=== PATIENT | female | born 1965 | race Caucasian/White ===

== ENCOUNTER 2017-09-19 16:14 | Inpatient (IN) | payer BC ==
[~2017-09-19] VITALS: Ht 160 cm; Wt 78.4 kg
[2017-09-19 16:16] VITALS: BP 146/88; PULSE 67; RESP 14; TEMP 97.6; O2SAT 97
[2017-09-19 17:02] LABS: AUTOMATED NEUTROPHIL # 4.4 TH/MM3 (1.8-7.7); BASOPHIL # 0.2 TH/MM3 (0-0.2); BASOPHIL % 1.9 % (0.0-2.0); EOSINOPHIL # 0.4 TH/MM3 (0-0.4); EOSINOPHIL % 5.2 % (0.0-4.0); HEMOGLOBIN 13.5 GM/DL (11.6-15.3); LYMPH % 29.2 % (9.0-44.0); LYMPHOCYTE # 2.3 TH/MM3 (1.0-4.8); MEAN CORPUSCULAR HEMOGLOBIN 30.2 PG (27.0-34.0); MEAN CORPUSCULAR HGB CONC 34.7 % (32.0-36.0); MEAN PLATELET VOLUME 7.3 FL (7.0-11.0); MONO % 8.1 % (0.0-8.0); MONOCYTE # 0.6 TH/MM3 (0-0.9); NEUT % 55.6 % (16.0-70.0); PLATELET COUNT 319 TH/MM3 (150-450); RED BLOOD COUNT 4.49 MIL/MM3 (4.00-5.30); RED CELL DISTRIBUTION WIDTH 13.8 % (11.6-17.2)
[2017-09-19 17:19] LABS: AST (GOT) 19 U/L (15-37); BICARBONATE 29.5 MEQ/L (21.0-32.0); BLOOD UREA NITROGEN 12 MG/DL (7-18); CALCIUM 8.8 MG/DL (8.5-10.1); CHLORIDE 93 MEQ/L (98-107); CREATININE 1.01 MG/DL (0.50-1.00); GLOMERULAR FILTRATION RATE 58 ML/MIN (>89); GLUCOSE,RANDOM 84 MG/DL (74-106); SODIUM (NA) 131 MEQ/L (136-145)
[2017-09-19 17:30] LABS: ALKALINE PHOSPHATASE 70 U/L (45-117); ALT (GPT) 20 U/L (10-53); TOTAL BILIRUBIN ADULT 0.4 MG/DL (0.2-1.0); TOTAL PROTEIN 7.7 GM/DL (6.4-8.2)
[2017-09-19] MEDS ORDERED: ZIPR1CAP10 PO (18:04)
[2017-09-19] MEDS ORDERED: VORT1TAB3 PO (18:04)
[2017-09-19] MEDS ORDERED: BUPR300T PO (18:04)
[2017-09-19] MEDS ORDERED: FURO1TAB60 PO (18:04)
[2017-09-19] MEDS ORDERED: LISI-515 PO (18:04)
[2017-09-19] MEDS ORDERED: DONE5TAB7 PO (18:04)
[2017-09-19] MEDS ORDERED: CLON2TAB PO (18:04)
[2017-09-19] MEDS ORDERED: ESTR1TAB PO (18:04)
[2017-09-19] MEDS ORDERED: PROP80TA PO (18:04)
[2017-09-19] MEDS ORDERED: BUPR150T3 PO (18:04)
[2017-09-19] MEDS ORDERED: NALT50TA3 PO (18:04)
[2017-09-19] MEDS ORDERED: ZALE10CA PO (18:04)
[2017-09-19] MEDS ORDERED: GABA800T PO (18:04)
[2017-09-19] MEDS ORDERED: LEVO175T2 PO (18:04)
[2017-09-19] MEDS ORDERED: AMIT25TA9 PO (18:04)
[2017-09-19] MEDS ORDERED: LAMO25TA PO (18:04)
[2017-09-19] MEDS ORDERED: CLON0.1T PO (18:04)
--- NOTE | 2017-09-19 18:53 | PD ---
HPI Chief Complaint: Psychiatric Symptoms Time Seen by Provider: 18:38 Travel History International Travel<30 days: No Contact w/Intl Traveler<30days: No Traveled to known affect area: No History of Present Illness HPI 52yo F with PMH of depression, anxiety, HTN presents to the ED because she was feeling depressed and her therapist said she should come to the ED. Pt has a tendency to cut her left arm and there are many superficial healed lacerations. Denies any fever, sob, n/v, abdominal pain, focal weakness or numbness. Pt said about an hour ago, she started having left sided chest pain that is sharp. Said she gets chest pain when she is anxious. Last stress test a year ago was normal. PFSH Past Medical History Bipolar Disorder: Yes Anxiety: Yes Depression: Yes High Cholesterol: Yes Diminished Hearing: No Hypertension: Yes Neurologic: Yes (NERVE PAIN ) Psychiatric: Yes (CUTTING ) Reproductive: Yes (FIBROIDS ) Triglycerides - High: Yes (HYPO ) Tetanus Vaccination: Unknown Influenza Vaccination: Yes ?: Not Menopausal: Yes Tubal Ligation: Yes Past Surgical History Abdominal Surgery: Yes (POLYPS REMOVED ) Cholecystectomy: Yes Gynecologic Surgery: Yes (HYSTERECTOMY ) Hysterectomy: Yes Other Surgery: Yes (PILONIDAL CYST REMOVED TO LOWER BACK ) Social History Alcohol Use: Yes (NO ALCOHOL FOR THE LAST 8 WEEKS , HX ETOH ABUSE ) Tobacco Use: Yes (08/28 PPD ) Substance Use: No (HX : COCCAINE LAST USE 1996 ) Allergies-Medications (Allergen,Severity, Reaction): Uncoded Allergies: sulfa drugs (Adverse Reaction, Unknown, manic behavior, 09/19/17) Reported Meds & Prescriptions Reported Meds & Active Scripts Active Reported Donepezil 5 Mg Tab 5 Mg PO HS Ziprasidone 60 Mg Cap 120 Mg PO HS Amitriptyline (Amitriptyline HCl) 25 Mg Tab 25 Mg PO HS Zaleplon 10 Mg Cap 10 Mg PO HS PRN Clonidine (Clonidine HCl) 0.1 Mg Tab 0.1 Mg PO HS Lamotrigine 25 Mg Tab 50 Mg PO HS Trintellix (Vortioxetine) 20 Mg Tab 20 Mg PO DAILY Bupropion HCl ER 24 HR (Bupropion HCl) 150 Mg Tab 150 Mg PO DAILY Lisinopril 20 Mg Tab 20 Mg PO DAILY Gabapentin 800 Mg Tab 800 Mg PO TID Lasix (Furosemide) 40 Mg Tab 40 Mg PO DAILY Estradiol 1 Mg Tab 1 Mg PO DAILY Naltrexone (Naltrexone HCl) 50 Mg Tab 50 Mg PO DAILY Clonazepam 2 Mg Tab 2 Mg PO BID Bupropion HCl ER 24 HR (Bupropion HCl) 300 Mg Tab 300 Mg PO DAILY Levothyroxine (Levothyroxine Sodium) 175 Mcg Tab 175 Mcg PO DAILY Propranolol (Propranolol HCl) 80 Mg Tab 80 Mg PO Q12HR Review of Systems Except as stated in HPI: all other systems reviewed are Neg Physical Exam Narrative GENERAL: 52yo F not in distress. SKIN: Focused skin assessment warm/dry. HEAD: Atraumatic. Normocephalic. EYES: Pupils equal and round at 3mm bilaterally. EOMI. CARDIOVASCULAR: Regular rate and rhythm. No murmur appreciated. RESPIRATORY: No accessory muscle use. Clear to auscultation. Breath sounds equal bilaterally. GASTROINTESTINAL: Abdomen soft, non-tender, nondistended. MUSCULOSKELETAL: LLE: Multiple healed superficial lacerations in volar aspect of left forearm. Distal pulses intact. NEUROLOGICAL: Awake and alert. No obvious cranial nerve deficits. Motor grossly within normal limits. Normal speech. PSYCHIATRIC: Anxious appearing. Data Data Last Documented VS Vital Signs Date Time Temp Pulse Resp B/P (MAP) Pulse Ox O2 Delivery O2 Flow Rate FiO2 09/20/17 07:05 80 15 107/60 (76) 97 Room Air 09/19/17 16:16 97.6 Orders Orders Complete Blood Count With Diff (09/19/17 16:23) Comprehensive Metabolic Panel (09/19/17 16:23) Thyroid Stimulating Hormone (09/19/17 16:23) Psych Screen (09/19/17 16:23) Drug Screen, Random Urine (09/19/17 16:23) Alcohol (Ethanol) (09/19/17 16:23) Electrocardiogram (09/19/17 ) Troponin I (09/19/17 18:46) Chest, Single Ap (09/19/17 ) Lorazepam (Ativan) (09/19/17 19:00) Ibuprofen (Motrin) (09/19/17 21:00) Troponin I (09/19/17 22:02) Electrocardiogram (09/19/17 ) Zolpidem (Ambien) (09/20/17 02:30) Diet Regular Basic (09/20/17 Breakfast) Lorazepam (Ativan) (09/20/17 13:30) Lorazepam Inj (Ativan Inj) (09/20/17 13:30) Lorazepam (Ativan) (09/20/17 13:30) Lorazepam Inj (Ativan Inj) (09/20/17 13:30) Acetaminophen (Tylenol) (09/20/17 13:30) Magnesium Hydroxide Liq (Milk Of Magnesi (09/20/17 13:30) Al-Mag Hy-Si 40-40-4 Mg/Ml Liq (Mag-Al P (09/20/17 13:30) Nicotine 21 Mg Patch.24 Hr (Habitrol 21 (09/20/17 15:00) Labs Laboratory Tests Test 09/19/17 16:34 09/19/17 22:30 White Blood Count 8.0 TH/MM3 Red Blood Count 4.49 MIL/MM3 Hemoglobin 13.5 GM/DL Hematocrit 39.0 % Mean Corpuscular Volume 87.0 FL Mean Corpuscular Hemoglobin 30.2 PG Mean Corpuscular Hemoglobin Concent 34.7 % Red Cell Distribution Width 13.8 % Platelet Count 319 TH/MM3 Mean Platelet Volume 7.3 FL Neutrophils (%) (Auto) 55.6 % Lymphocytes (%) (Auto) 29.2 % Monocytes (%) (Auto) 8.1 % Eosinophils (%) (Auto) 5.2 % Basophils (%) (Auto) 1.9 % Neutrophils # (Auto) 4.4 TH/MM3 Lymphocytes # (Auto) 2.3 TH/MM3 Monocytes # (Auto) 0.6 TH/MM3 Eosinophils # (Auto) 0.4 TH/MM3 Basophils # (Auto) 0.2 TH/MM3 CBC Comment DIFF FINAL Differential Comment Blood Urea Nitrogen 12 MG/DL Creatinine 1.01 MG/DL Random Glucose 84 MG/DL Total Protein 7.7 GM/DL Albumin 4.0 GM/DL Calcium Level 8.8 MG/DL Alkaline Phosphatase 70 U/L Aspartate Amino Transf (AST/SGOT) 19 U/L Alanine Aminotransferase (ALT/SGPT) 20 U/L Total Bilirubin 0.4 MG/DL Sodium Level 131 MEQ/L Potassium Level 3.8 MEQ/L Chloride Level 93 MEQ/L Carbon Dioxide Level 29.5 MEQ/L Anion Gap 9 MEQ/L Estimat Glomerular Filtration Rate 58 ML/MIN Troponin I LESS THAN 0.02 NG/ML LESS THAN 0.02 NG/ML Thyroid Stimulating Hormone 3rd Gen 2.460 uIU/ML Urine Opiates Screen NEG Urine Barbiturates Screen NEG Urine Amphetamines Screen NEG Urine Benzodiazepines Screen NEG Urine Cocaine Screen NEG Urine Cannabinoids Screen NEG Ethyl Alcohol Level LESS THAN 3 MG/DL MDM Medical Decision Making Medical Screen Exam Complete: Yes Emergency Medical Condition: Yes Interpretation(s) EKG: NSR 61bpm. Normal axis. No ST segment elevation or depression. EKG #2: NSR 68bpm. Normal axis. No ST segment elevation or depression. Differential Diagnosis Anxiety vs. depression vs. atypical chest pain Narrative Course 52yo F here voluntarily to see a psychiatrist. Has been having suicidal thoughts and saw therapist today who said she should come to the ED. Pt also said she started feeling chest pain prior to my evaluation and that she always has it when she is nervous. Very atypical chest pain. Labs reviewed, no leukocytosis. Mild hyponatremia at 131. TSH normal. Alcohol negative. Utox negative. CXR negative. Troponin negative x2 negative. EKG x2 normal. Pt is medically clear for psych evaluation. Diagnosis Primary Impression: Depression Qualified Codes: F32.9 - Major depressive disorder, single episode, unspecified Laura Cleaning DO Sep 19, 2017 18:53
[2017-09-19] MEDS ORDERED: LORazepam 1 MG TAB PO ONE (19:00)
--- NOTE | 2017-09-19 19:53 | RADRPT ---
EXAM DATE/TIME: 09/19/2017 19:05 [facility] COMPARISON: No previous studies available for comparison. INDICATIONS : Chest pain. MEDICAL HISTORY : None. SURGICAL HISTORY : None. ENCOUNTER: Initial ACUITY: 1 day PAIN SCORE: 09/05 LOCATION: Bilateral chest FINDINGS: A single view of the chest demonstrates the lungs to be symmetrically aerated without evidence of mas s, infiltrate or effusion. The cardiomediastinal contours are unremarkable. Osseous structures are intact. CONCLUSION: 1. No active disease. Junior Whitehead MD on September 19, 2017 at 19:50 Board Certified Radiologist. This report was verified electronically.
[2017-09-19] MEDS ORDERED: IBUPROFEN 600 MG TAB PO ONE (21:00)
--- NOTE | 2017-09-20 00:28 | EKG ---
Date Performed: 09/19/2017 Time Performed: 19:25:24 PTAGE: 52 years EKG: Sinus rhythm NORMAL ECG NO PREVIOUS TRACING DOCTOR: Nick Narvaez Interpretating Date/Time 09/20/2017 00:27:09
[2017-09-20] MEDS ORDERED: ZOLPIDEM TARTRATE 5 MG TAB PO ONE (02:30)
[2017-09-20 07:05] VITALS: BP 107/60; PULSE 80; RESP 15; O2SAT 97
[2017-09-20] MEDS ORDERED: ACETAMINOPHEN 325 MG TAB PO PRN (13:30)
[2017-09-20] MEDS ORDERED: LORazepam 2 MG/ML VIAL IM PRN ×2 (13:30)
[2017-09-20] MEDS ORDERED: LORazepam 0.5 MG TAB PO PRN (13:30)
[2017-09-20] MEDS ORDERED: LORazepam 1 MG TAB PO PRN (13:30)
[2017-09-20] MEDS ORDERED: MAGNESIUM HYDROXIDE SUSP 30 ML CUP PO PRN (13:30)
[2017-09-20] MEDS ORDERED: ALUMINUM/MAGNESIUM/SIMETH 30 ML CUP PO PRN (13:30)
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
[2017-09-20] MEDS ORDERED: NICOTINE 21 MG/24 HR PATCH T-DERMAL SCH (15:00)
--- NOTE | 2017-09-20 16:42 | PD.CONS ---
HPI Service 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 Patient has a history of cutting herself and today was in to see her counselor who advised she come to [place] for evaluation. At the moment of my encounter patient is calm and cooperative and is able to answer questions appropriately. She denies any fevers, chills, nausea, vomiting, diarrhea, chest pains, or shortness of breath. She reports a headache and states that her medications have not been restarted the complaining of anxiety. Patient tells me that she suffers from burning mouth syndrome and that she used to be on a numbing liquid however was transitioned over to a nerve pill, she is unable to provide me with the dosage. She also states that she quit drinking 8 weeks ago and was previously on a medication to help her with alcohol cravings. She is a one pack per day smoker and states that since she has arrived she been struggling with this since she is not allowed to smoke here. Review of Systems Except as stated in HPI: all other systems reviewed are Neg Past Family Social History Allergies: Uncoded Allergies: sulfa drugs (Adverse Reaction, Unknown, manic behavior, 09/19/17) Past Medical History HTN Hypothyroidism ?VT COPD/emphysema Burning mouth syndrome glaucoma Past Surgical History Hysterectomy due to fibroids Cholecystectomy Reported Medications Reported Meds & Active Scripts Active Reported Donepezil 5 Mg Tab 5 Mg PO HS Ziprasidone 60 Mg Cap 120 Mg PO HS Amitriptyline (Amitriptyline HCl) 25 Mg Tab 25 Mg PO HS Zaleplon 10 Mg Cap 10 Mg PO HS PRN Clonidine (Clonidine HCl) 0.1 Mg Tab 0.1 Mg PO HS Lamotrigine 25 Mg Tab 50 Mg PO HS Trintellix (Vortioxetine) 20 Mg Tab 20 Mg PO DAILY Bupropion HCl ER 24 HR (Bupropion HCl) 150 Mg Tab 150 Mg PO DAILY Lisinopril 20 Mg Tab 20 Mg PO DAILY Gabapentin 800 Mg Tab 800 Mg PO TID Lasix (Furosemide) 40 Mg Tab 40 Mg PO DAILY Estradiol 1 Mg Tab 1 Mg PO DAILY Naltrexone (Naltrexone HCl) 50 Mg Tab 50 Mg PO DAILY Clonazepam 2 Mg Tab 2 Mg PO BID Bupropion HCl ER 24 HR (Bupropion HCl) 300 Mg Tab 300 Mg PO DAILY Levothyroxine (Levothyroxine Sodium) 175 Mcg Tab 175 Mcg PO DAILY Propranolol (Propranolol HCl) 80 Mg Tab 80 Mg PO Q12HR Active Ordered Medications Current Medications Medications (Trade) Dose Ordered Sig/Lamont Route Start Time Stop Time Status Last Admin (Wellbutrin Sr) 150 mg DAILY PO 09/21/17 09:00 (Wellbutrin Sr) 300 mg DAILY PO 09/21/17 09:00 (KlonoPIN) 2 mg BID PO 09/20/17 21:00 (Catapres) 0.1 mg HS PO 09/20/17 21:00 (Estradiol) 1 mg DAILY PO 09/21/17 09:00 (Lasix) 40 mg DAILY PO 09/21/17 09:00 (Prinivil) 20 mg DAILY PO 09/21/17 09:00 (Inderal) 80 mg Q12HR PO 09/20/17 21:00 (Geodon) 120 mg HS PO 09/20/17 21:00 (Neurontin) 2,400 mg HS PO 09/20/17 21:00 (Elavil) 50 mg HS PO 09/20/17 21:00 (LaMICtal) 50 mg Q12HR PO 09/20/17 21:00 (Synthroid) 100 mcg DAILY@0600 PO 09/21/17 06:00 (Synthroid) 75 mcg DAILY@0600 PO 09/21/17 06:00 Family History Mother: VT Father: Prostate cancer Social History Tobacco use: One pack per day Alcohol use: Quit drinking 8 weeks ago, reports drinking vodka daily, unable to quantify amount. She also states that because she worked 7 days in a row and was off 7 days she would only drink on her days off. Illicit drug use: Denies Physical Exam Vital Signs Vital Signs Date Time Temp Pulse Resp B/P (MAP) Pulse Ox O2 Delivery O2 Flow Rate FiO2 09/20/17 14:06 09/20/17 07:05 80 15 107/60 (76) 97 Room Air Physical Exam GENERAL: This is a well-nourished, well-developed patient, in no apparent distress. SKIN: Left forearm multiple laceration eschars, no surrounding warmth, redness or drainage open to air. Abdominal scars noted, left sided brown discoloration about quarter size, no visible drainage. Cool and dry. HEAD: Atraumatic. Normocephalic. No temporal or scalp tenderness. EYES: Pupils equal round and reactive. Extraocular motions intact. No scleral icterus. No injection or drainage. ENT: Nose without bleeding, purulent drainage or septal hematoma. Throat without erythema. Airway patent. NECK: Trachea midline. No JVD or lymphadenopathy. Supple, nontender. CARDIOVASCULAR: Regular rate and rhythm without murmurs, gallops, or rubs. RESPIRATORY: Clear to auscultation. Breath sounds equal bilaterally. No wheezes , rales, or rhonchi. GASTROINTESTINAL: Abdomen soft, non-tender, nondistended. No palpable masses. No guarding. MUSCULOSKELETAL: Extremities without clubbing, cyanosis, or edema. No joint tenderness, effusion, or edema noted. No calf tenderness. NEUROLOGICAL: Awake and alert. Cranial nerves II through XII intact. Motor and sensory grossly within normal limits. Five out of 5 muscle strength in all muscle groups. Normal speech. Laboratory Laboratory Tests Test 09/19/17 22:30 Troponin I LESS THAN 0.02 Result Diagram: 09/19/17 1634 09/19/17 1634 Imaging Last Impressions Chest X-Ray 09/19/17 0000 Signed Impressions: Service Date/Time: Tuesday, September 19, 2017 19:05 - CONCLUSION: 1. No active disease. Junior Whitehead MD Assessment and Plan Assessment and Plan 52-year-old female with past medical history significant for HTN, VT, glaucoma, COPD/emphysema, hypothyroidism, burning mouth syndrome, and bipolar disorder who was been admitted to inpatient psychiatry due to suicidal ideation. Patient has a history of cutting herself and today was in to see her counselor who advised she come to [place] for evaluation. Bipolar disorder/depression - Management per psychiatry HTN, controlled History of VT - Continue lisinopril 20 mg, Lasix 40 mg, and propanolol 80 mg - BP well controlled - Patient also reports taking baby aspirin at home, will resume - Will check lipid profile COPD/emphysema Tobacco abuse - Will resume Breo inhaler - Duo nebs as needed - Smoking cessation encouraged - Patient started on bupropion Burning mouth syndrome - Continue gabapentin, and amitriptyline which patient reports are both used for this condition. Hyponatremia, mild - Sodium level 131, will recheck labs tomorrow - If not improved may discontinue lisinopril or Lasix fluid restriction. - Patient asymptomatic Alcohol abuse - Patient encouraged to continue alcohol cessation. DVT prophylaxis - Patient is ambulating Problem Qualifiers (1) Depression: Qualified Codes: F32.9 - Major depressive disorder, single episode, unspecified Husam Orona Sep 20, 2017 16:41
[2017-09-20 16:57] VITALS: BP 146/86; PULSE 88; RESP 18; TEMP 98.4; O2SAT 99
[2017-09-20] MEDS ORDERED: RESP: ALBUTEROL 2.5 MG/IPRATROPIUM 0.5 MG NEB (PRN) NEB (18:15)
[2017-09-20] MEDS ORDERED: cloNIDine HCL 0.1 MG TAB PO SCH (21:00)
[2017-09-20] MEDS ORDERED: ZIPRASIDONE HCL 60 MG CAP PO SCH (21:00)
[2017-09-20] MEDS ORDERED: GABAPENTIN 400 MG CAP PO SCH (21:00)
[2017-09-20] MEDS ORDERED: AMITRIPTYLINE HCL 50 MG TAB PO SCH (21:00)
[2017-09-20] MEDS ORDERED: REMOVE OLD NICODERM (NICOTINE) PATCH T-DERMAL SCH (21:00)
[2017-09-20] MEDS: lamoTRIgine 25 MG TAB PO SCH (21:59)
[2017-09-20] MEDS: clonazePAM 1 MG TAB PO SCH (21:59)
[2017-09-20] MEDS: PROPRANOLOL HCL 80 MG TAB PO SCH (22:18)
--- NOTE | 2017-09-20 23:50 | EKG ---
Date Performed: 09/19/2017 Time Performed: 23:05:51 PTAGE: 52 years EKG: Sinus rhythm NORMAL ECG PREVIOUS TRACING : 09/19/2017 19.25 Since the prior tracing, there has been no significant castillo DOCTOR: Nick Narvaez Interpretating Date/Time 09/20/2017 23:48:59
[2017-09-21] MEDS ORDERED: LEVOTHYROXINE SODIUM 75 MCG TAB PO SCH (06:00)
[2017-09-21] MEDS ORDERED: LEVOTHYROXINE SODIUM 100 MCG TAB PO SCH (06:00)
[2017-09-21 06:08] VITALS: BP 123/67; PULSE 72; RESP 16; TEMP 98; O2SAT 97
[2017-09-21] MEDS ORDERED: NON-FORMULARY DRUG (Levothyroxine 175 MCG) PO SCH (09:00)
[2017-09-21] MEDS ORDERED: buPROPion HCL 150 MG SUSTAINED RELEASE TAB PO SCH ×2 (09:00)
[2017-09-21] MEDS ORDERED: FLUTICASONE 100 MCG/VILANTEROL 25 MCG INHALER INH SCH (09:00)
[2017-09-21] MEDS ORDERED: ASPIRIN EC 81 MG TABEC PO SCH (09:00)
[2017-09-21] MEDS ORDERED: LISINOPRIL 20 MG TAB PO SCH (09:00)
[2017-09-21] MEDS ORDERED: ESTRADIOL 1 MG TAB PO SCH (09:00)
[2017-09-21] MEDS ORDERED: FUROSEMIDE 40 MG TAB PO SCH (09:00)
[2017-09-21] MEDS: clonazePAM 1 MG TAB PO SCH (09:37)
[2017-09-21] MEDS: lamoTRIgine 25 MG TAB PO SCH (09:37)
[2017-09-21] MEDS: PROPRANOLOL HCL 80 MG TAB PO SCH (09:37)
[2017-09-21] MEDS ORDERED: PNEUMOCOCCAL POLYVALENT INJ 25 MCG/0.5 ML SYR IM ONE (10:00)
[2017-09-21] MEDS ORDERED: INFLUENZA VIRUS VACCINE (QUADRIVALENT) 0.5 ML SYR IM ONE (10:00)
[2017-09-21 10:32] LABS: AUTOMATED NEUTROPHIL # 2.9 TH/MM3 (1.8-7.7); BASOPHIL # 0.1 TH/MM3 (0-0.2); BASOPHIL % 1.6 % (0.0-2.0); EOSINOPHIL # 0.3 TH/MM3 (0-0.4); EOSINOPHIL % 5.5 % (0.0-4.0); HEMATOCRIT 42.2 % (35.0-46.0); HEMOGLOBIN 14.2 GM/DL (11.6-15.3); LYMPHOCYTE # 2.1 TH/MM3 (1.0-4.8); MEAN CORPUSCULAR HGB CONC 33.7 % (32.0-36.0); MEAN PLATELET VOLUME 7.3 FL (7.0-11.0); MONOCYTE # 0.7 TH/MM3 (0-0.9); NEUT % 46.9 % (16.0-70.0); PLATELET COUNT 340 TH/MM3 (150-450); RED BLOOD COUNT 4.74 MIL/MM3 (4.00-5.30); WHITE BLOOD COUNT 6.3 TH/MM3 (4.0-11.0)
[2017-09-21 11:20] LABS: ALBUMIN 3.8 GM/DL (3.4-5.0); ALKALINE PHOSPHATASE 66 U/L (45-117); ALT (GPT) 17 U/L (10-53); AST (GOT) 13 U/L (15-37); BICARBONATE 26.5 MEQ/L (21.0-32.0); BLOOD UREA NITROGEN 14 MG/DL (7-18); CALCIUM 9.6 MG/DL (8.5-10.1); CHLORIDE 107 MEQ/L (98-107); CHOLESTEROL 311 MG/DL (120-200); CREATININE 1.08 MG/DL (0.50-1.00); GLOMERULAR FILTRATION RATE 53 ML/MIN (>89); GLUCOSE,RANDOM 90 MG/DL (74-106); HDL CHOLESTEROL 163.6 MG/DL (40.0-60.0); LDL CHOLESTEROL 127 MG/DL (0-99); SODIUM (NA) 141 MEQ/L (136-145); TOTAL BILIRUBIN ADULT 0.3 MG/DL (0.2-1.0); TOTAL PROTEIN 7.6 GM/DL (6.4-8.2); TRIGLYCERIDES 103 MG/DL (42-150)
--- NOTE | 2017-09-21 13:06 | HHI.DS ---
Psychiatry Discharge Summary Inpatient Psychiatric care?: Yes Advance Directive: No Reason Not Provided: Due to Patient Condition Mental Health AdvanceDirective: No Health Care Proxy: No Admission Admission Date Sep 20, 2017 at 13:23 Admission Diagnosis: (1) Bipolar disorder current episode depressed ICD Code: F31.30 - Bipolar disorder, current episode depressed, mild or moderate severity, unspecified Brief History 52-year-old female presents voluntarily with multiyear history of bipolar disorder, currently depressed with suicidal ideation and plan to cut her arm. Patient describes multiyear history of depressive episodes as well as multiple occasions upon which she has cut herself. The current episode has been going on for months and she saw her counselor today, who encouraged her to come to [place] for admission. Patient does not think she can refrain from cutting herself. She describes multiple symptoms of depression including depressed mood , anhedonia, suicidal ideation with plan, feelings of hopelessness and helplessness, diminished energy, diminished self-esteem, social isolation, loss of appetite, sleep disturbance with both initial and middle insomnia, decreased libido, problems with concentration and attention, as well as generalized anxiety. She is unable or unwilling to provide information to this physician about any triggers to this depressive episode. She is accompanied by her , who states that she does have significant pain for which she is taking high dose gabapentin, Elavil, etc. She has a history of drug and alcohol abuse. She denies any recent consumption of alcohol or illicit drugs. She is noted to be on multiple medications, including Klonopin. Tobacco Use In Past 30 Days: 5 or More Cigarettes/Day Alcohol Use: Never Hospital Course Patient seen in her room with nurse Marianne. Chart reviewed. 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 She is placed on this administrative leave over 2 months ago. She has been seen by psychiatry, neurology, and counseling, for this. Patient has a history of being a superficial culture most of her adult life. She is had some episodes of superficial scratching her left volar forearm and a small amount over her mid abdomen. Patient states 1 psychiatric hospitalization around 1995 for depression. She denies other psychiatric hospitalizations. Patient lives with her second of 16 years. She states that is a good relationship. That he is supportive of her. She also has 3 adult children that live out of state. She states she is recovering alcoholic and has not had a drink in 8 weeks. She said she detoxed herself about going through program. She states she did experiment with other drugs as a young woman. In any event at the present time patient able contracted to no harm. She denies suicidality homicidality voices or visions. She states she is able control himself and not cut on herself. She states her has found a "cutters" group that she will investigate and possibly attend. Thus at this time patient no longer meets Stevens criteria. She wishes to be discharged. Thus I'll lift Rodney act allow her to be discharged to herself. Follow-up within the next week with her psychiatrist, counselor, and perhaps this "cutters " group. The been no Rx by me. She may continue her own home prescribed medications Results Blood Pressure 123 / 67 Vital Signs Date Time Temp Pulse Resp B/P (MAP) Pulse Ox O2 Delivery O2 Flow Rate FiO2 09/21/17 06:08 98.0 72 16 123/67 (85) 97 09/20/17 07:05 Room Air Laboratory Tests Test 09/19/17 16:34 09/19/17 22:30 09/21/17 09:40 Monocytes (%) (Auto) 8.1 % (0.0-8.0) 12.0 % (0.0-8.0) Eosinophils (%) (Auto) 5.2 % (0.0-4.0) 5.5 % (0.0-4.0) Creatinine 1.01 MG/DL (0.50-1.00) 1.08 MG/DL (0.50-1.00) Sodium Level 131 MEQ/L (136-145) Chloride Level 93 MEQ/L (98-107) Estimat Glomerular Filtration Rate 58 ML/MIN (>89) 53 ML/MIN (>89) Troponin I LESS THAN 0.02 NG/ML LESS THAN 0.02 NG/ML Aspartate Amino Transf (AST/SGOT) 13 U/L (15-37) Cholesterol Level 311 MG/DL (120-200) LDL Cholesterol 127 MG/DL (0-99) HDL Cholesterol 163.6 MG/DL (40.0-60.0) 25-Hydroxy Vitamin D Total 19.6 ng/ML (30-100) Thyroid Stimulating Hormone 3rd Gen 3.880 uIU/ML (0.358-3.740) Laboratory Results Test 09/21/17 09:40 Cholesterol Level 311 MG/DL (120-200) HDL Cholesterol 163.6 MG/DL (40.0-60.0) LDL Cholesterol 127 MG/DL (0-99) Triglycerides Level 103 MG/DL (42-150) Summary of Procedures None done Imaging Last Impressions Chest X-Ray 09/19/17 0000 Signed Impressions: Service Date/Time: Tuesday, September 19, 2017 19:05 - CONCLUSION: 1. No active disease. Junior Whitehead MD Pending results at discharge: No Medications # of Antipsychotic meds at D/C: 0 Approp Antipsych med options 1 - Minimum of three failed multiple trials of monotherapy. 2 - Documented plan to taper to monotherapy due to previous use of multiple meds OR cross-taper in progress at D/C. 3 - Documentation of augmentation of Clozapine. 4 - Justification other than those listed in allowable values 1-3, document here : Discharge Discharge Date: Sep 21, 2017 Discharge Diagnosis: (1) Bipolar disorder current episode depressed Diagnosis: Principal ICD Code: F31.30 - Bipolar disorder, current episode depressed, mild or moderate severity, unspecified Pt Condition on Discharge: Stable Discharge Disposition: Discharge Home Discharge Instructions Diet Instructions: As Tolerated, No Restrictions Activities you can perform: Regular-No Restrictions Scheduled Appointment: follow-up within 7 days private psychiatrist, counselor , and explore "cutter's" group Discharge Time > 30 minutes Mental Status Examination Appearance: Appropriate Consciousness: Alert Orientation: x4 Motor Activity: Normal gait Speech: Unremarkable Language: Adequate Fund of Knowledge: Adequate Attention and Concentration: Adequate Memory: Unremarkable Mood: Sad, Anxious Affect: Sad, Anxious Thought Process & Associations: Intact Thought Content: Appropriate Hallucination Type: None Delusion Type: None Suicidal Ideation: Yes Suicidal Plan: Yes Suicidal Intention: Yes Homicidal Ideation: No Homicidal Plan: No Homicidal Intention: No Insight: Fair Judgment: Impulsive Discharge/Advance Care Plan Health Problems: (1) Bipolar disorder current episode depressed Goals to promote your health * To prevent worsening of your condition and complications * To maintain your health at the optimal level Directions to meet your goals Take your medications as prescribed Follow your dietary instruction Follow activity as directed Keep your appointments as scheduled Take your immunizations and boosters as scheduled If your symptoms worsen call your PCP, if no PCP go to Urgent Care Center or Emergency Room For 19/03 questions related to your inpatient stay or results of tests pending at discharge, please contact Dr. Bashir Beltrán at Smoking is Dangerous to Your Health. Avoid second hand smoking Problem Qualifiers (1) Bipolar disorder current episode depressed: Qualified Codes: F31.32 - Bipolar disorder, current episode depressed, moderate Bashir Beltrán MD Sep 21, 2017 13:06
--- NOTE | 2017-09-21 13:55 | HHI.PR ---
Subjective Remarks Follow-up for HTN, TN, glaucoma, COPD/emphysema, hypothyroidism, and burning mouth syndrome. Patient repots he had a good night and denies any fevers, chills , nausea, vomiting, diarrhea or pain. She repots feeling fine with no acute concerns or complaints. Objective Vitals Vital Signs Date Time Temp Pulse Resp B/P (MAP) Pulse Ox O2 Delivery O2 Flow Rate FiO2 09/21/17 06:08 98.0 72 16 123/67 (85) 97 09/20/17 16:57 98.4 88 18 146/86 (106) 99 09/20/17 14:06 I/O 09/20/17 09/20/17 09/20/17 09/21/17 09/21/17 09/21/17 07:00 15:00 23:00 07:00 15:00 23:00 Intake Total 240 ml Balance 240 ml Intake Oral 240 ml Result Diagram: 09/21/17 0940 09/21/17 0940 Objective Remarks GENERAL: This is a well-nourished, well-developed patient, in no apparent distress. SKIN: Left forearm multiple laceration eschars, no surrounding warmth, redness or drainage open to air. Abdominal scars noted, left sided brown discoloration about quarter size, no visible drainage. Cool and dry. HEAD: Atraumatic. EYES: Pupils equal round and reactive. Extraocular motions intact. No scleral icterus. No injection or drainage. ENT: Nose without bleeding. Airway patent. NECK: Trachea midline. No JVD. CARDIOVASCULAR: Regular rate and rhythm without murmurs, gallops, or rubs. RESPIRATORY: Bilateral upper mild wheezing. No rales, or rhonchi. GASTROINTESTINAL: Abdomen soft, non-tender, nondistended. No palpable masses. No guarding. MUSCULOSKELETAL: Extremities without clubbing, cyanosis, or edema. No joint tenderness, effusion, or edema noted. No calf tenderness. NEUROLOGICAL: Awake and alert Motor and sensory grossly within normal limits. Ambulating without difficulties. Normal speech. A/P Problem List: (1) HTN (hypertension) ICD Code: I10 - Essential (primary) hypertension (2) Burning mouth syndrome ICD Code: K14.6 - Glossodynia (3) COPD with emphysema ICD Code: J43.9 - Emphysema, unspecified (4) Depression ICD Code: F32.9 - Major depressive disorder, single episode, unspecified Status: Acute (5) Bipolar disorder current episode depressed ICD Code: F31.30 - Bipolar disorder, current episode depressed, mild or moderate severity, unspecified Assessment and Plan 52-year-old female with past medical history significant for HTN, TN, glaucoma, COPD/emphysema, hypothyroidism, burning mouth syndrome, and bipolar disorder who was been admitted to inpatient psychiatry due to suicidal ideation. Patient has a history of cutting herself and today was in to see her counselor who advised she come to [place] for evaluation. Bipolar disorder/depression - Management per psychiatry HTN, controlled History of TN - Continue lisinopril 20 mg, Lasix 40 mg, and propanolol 80 mg - BP well controlled - Continue baby ASA - Heart healthy diet COPD/emphysema Tobacco abuse - Continue Breo inhaler - Duo nebs as needed - Smoking cessation encouraged - Patient started on bupropion Burning mouth syndrome - Continue gabapentin, and amitriptyline which patient reports are both used for this condition. Hyponatremia, resolved Alcohol abuse - Patient encouraged to continue alcohol cessation. DVT prophylaxis - Patient is ambulating Patient will be discharged today. Follow-up with PCP and psychiatrist. Problem Qualifiers (1) Depression: Qualified Codes: F32.9 - Major depressive disorder, single episode, unspecified (2) Bipolar disorder current episode depressed: Qualified Codes: F31.32 - Bipolar disorder, current episode depressed, moderate Husam Orona Sep 21, 2017 13:55
--- NOTE | 2017-09-22 13:27 | EKG ---
Date Performed: 09/21/2017 Time Performed: 12:46:36 PTAGE: 52 years EKG: Sinus rhythm Since the prior tracing, there has been no significant change NORMAL ECG PREVIOUS TRACING : 09/19/2017 23.05 DOCTOR: Jonnathan Wagner Interpretating Date/Time 09/22/2017 13:25:30
== END 2017-09-21 16:00 | disposition home or self-care (01) | DRG 885 ==
LOC: NEPD 16:14 → NEDA 09-20 13:23 → H260 09-20 15:24
PROVIDERS: ADMIT Psychiatry & Neurology Psychiatry; ATTEND Psychiatry & Neurology Psychiatry
DX: F31.30 Bipolar disorder, current episode depressed, mild or moderate severity, unspecified (principal); E87.1 Hypo-osmolality and hyponatremia; I10 Essential (primary) hypertension; F17.210 Nicotine dependence, cigarettes, uncomplicated; E03.9 Hypothyroidism, unspecified; J43.9 Emphysema, unspecified; K14.6 Glossodynia; Z23 Encounter for immunization; I25.2 Old myocardial infarction
CPT/HCPCS: 71045; 80053; 80061; 80307; 82306; 82607; 84443; 84484; 85025; 90686; 90732; 93005; Q2038